=== PATIENT | male | born 1990 | race African-American/Black ===

== ENCOUNTER 2019-05-14 04:40 | Inpatient (IN) | payer BC, OTHER, SELFPAY ==
[2019-05-14] MEDS ORDERED: Acetaminophen 500 MG TAB ONE (04:54)
[2019-05-14] MEDS ORDERED: cefTRIAXone\\ROCEPHIN 2 GM VIAL ONE (04:54)
[2019-05-14] MEDS ORDERED: methylPREDNISolone Sod Succ/PF 125 MG/2 ML VIAL ONE (04:58)
[2019-05-14 05:16] LABS: Hemoglobin 14.1 g/dL (14.0-18.0); Mean Corpuscular HGB CONC 31.9 g/dL (32.0-36.0); Mean Corpuscular Volume 84.6 fL (78.0-98.0); Platelet Count 183 thou/uL (130-400); RBC Distribution Width 12.6 % (11.5-14.5); Red Blood Cell (RBC) Count 5.21 mill/uL (4.70-6.10); White Blood Cell (WBC) Count 8.4 thou/uL (4.8-10.8)
[2019-05-14] MEDS ORDERED: Azithromycin 500 MG VIAL ONE (05:27)
[2019-05-14 05:37] LABS: ALT (SGPT) 25 U/L (8-55); AST (SGOT) 45 U/L (5-34); Albumin 3.4 g/dL (3.5-5.0); Alkaline Phosphatase 85 U/L (40-110); Anion Gap 17 mmol/L (10-20); BUN (Urea Nitrogen) 21 mg/dL (8.9-20.6); Bilirubin, Total 0.3 mg/dL (0.2-1.2); Calc. Creatinine Clearance 0 mL/min (70-130); Calcium 9.1 mg/dL (7.8-10.44); Carbon Dioxide 23 mmol/L (22-29); Chloride 93 mmol/L (98-107); Estimated GFR-MDRD Greater than 90; Globulin 6.5 g/dL (2.4-3.5); Glucose 108 mg/dL (70-105); Potassium 4.3 mmol/L (3.5-5.1); Protein, Total 9.9 g/dL (6.0-8.3); Sodium 129 mmol/L (136-145)
[2019-05-14 05:41] LABS: Band 20 % (5-11); Lymphocytes 23 % (21-51); MDiff Complete? YES; Metamyelocyte 4 % (0-0); Monocytes 7 % (0-10); Neutrophil 46 % (42-75); Platelet Morphology Comment Appears Adequate; RBC Morphology Normal
[2019-05-14 06:07] LABS: Bacteria/HPF None Seen HPF (None Seen); Bilirubin Negative (Negative); Blood, Urine 1+ (Negative); Clarity Clear (Clear); Glucose, Urine (Dipstick) Normal (Negative); Leukocyte Negative Leu/uL (Negative); Nitrite Negative (Negative); Protein, Urine (Dipstick) 200 mg/dL (Neg-Trace); Squamous Epithelial 0-3 HPF (0-3); WBC/HPF 0-3 HPF (0-3)
[2019-05-14 06:11] LABS: Amphetamine Not Detected (NotDetected); Barbiturates Screen Not Detected (NotDetected); Benzodiazepine Screen Not Detected (NotDetected); Cocaine Metabolite Screen Not Detected (NotDetected); Medtox Control Line Valid? VALID (VALID); Medtox Reader # READER 4; Methadone Not Detected (NotDetected); Methamphetamine Not Detected (NotDetected); Opiate Screen Not Detected (NotDetected); Oxycodone Screen Not Detected (NotDetected); Phencyclidine (PCP) Not Detected (NotDetected); THC/Cannabinoid Screen Detected (NotDetected); Tricyclic Screen Not Detected (NotDetected)
--- NOTE | 2019-05-14 06:38 | PDOC.FPRHP ---
- History of Present Illness Chief Complaint: productive cough, fever History of Present Illness: Bijan Lee is a 28 year old M with no PMH who presented to ED with c/o productive cough for the last week. Associated fever, diarrhea, muscle aches, decreased appetite. Has been taking theraflu and ibuprofen which only minimal improvement of symptoms. Associated weight loss over the last week. Denies any chest pain, rashes, n/v, urinary symptoms, penile discharge, exposure or hx of STIs. ED Course: In the ED, received azithromycin, solu-medrol, rocephin, tylenol and solu-medrol - Allergies/Adverse Reactions Allergies Allergy/AdvReac Type Severity Reaction Status Date / Time amoxicillin Allergy Rash Verified 05/14/19 07:48 - History PMHx: none PSHx: none FHx: noncontributory Social: denies drug use (UDS positive for THC), smoking cigarettes, denied alcohol use - Review of Systems General: reports: fever/chills, weight/appetite/sleep changes, night sweats Eyes: denies: eye pain, vision changes ENT: denies: nasal congestion, rhinorrhea Respiratory: reports: cough, congestion, shortness of breath Cardiovascular: denies: chest pain, palpitation, edema Gastrointestinal: reports: diarrhea. denies: nausea, vomiting, constipation, abdominal pain, GI bleeding Genitourinary: denies: dysuria, polyuria Skin: denies: rashes, lesions Musculoskeletal: denies: tenderness, stiffness, swelling, arthritis/arthralgias Neurological: denies: numbness, syncope Psychological: denies: anxiety, depression - Vital signs BP: 115/64 HR: 123 RR: 28 Tmax: 101 Pox: 95% on facemask Wt: 63.5 kg - Physical Exam Constitutional: NAD, awake, alert and oriented HEENT: PERRLA, EOMI Neck: FROM, trachea midline, no JVD Heart: RRR, normal S1/S2, pulses present Lungs: CTAB, no wheezing -Lungs: Decreased air movement Abdomen: soft, non-tender, bowel sounds present Neurological: no focal deficit, CN II-XII intact Skin: no rash/lesions Heme/Lymphatic: no purpura, no petechia Psychiatric: normal mood and affect, good judgment and insight FMR H&P: Results - Labs Result Diagrams: 05/14/19 04:57 05/14/19 04:57 Lab results: WBC 8.4 thou/uL (4.8-10.8) 05/14/19 04:57 Hgb 14.1 g/dL (14.0-18.0) 05/14/19 04:57 Hct 44.1 % (42.0-52.0) 05/14/19 04:57 MCV 84.6 fL (78.0-98.0) 05/14/19 04:57 Plt Count 183 thou/uL (130-400) 05/14/19 04:57 Band Neuts % (Manual) 20 % (5-11) H 05/14/19 04:57 Sodium 129 mmol/L (136-145) L 05/14/19 04:57 Potassium 4.3 mmol/L (3.5-5.1) 05/14/19 04:57 Chloride 93 mmol/L (98-107) L 05/14/19 04:57 Carbon Dioxide 23 mmol/L (22-29) 05/14/19 04:57 BUN 21 mg/dL (8.9-20.6) H 05/14/19 04:57 Creatinine 1.10 mg/dL (0.7-1.3) 05/14/19 04:57 Glucose 108 mg/dL (70-105) H 05/14/19 04:57 Lactic Acid 2.4 mmol/L (0.5-2.2) H 05/14/19 04:57 Calcium 9.1 mg/dL (7.8-10.44) 05/14/19 04:57 Total Bilirubin 0.3 mg/dL (0.2-1.2) 05/14/19 04:57 AST 45 U/L (5-34) H 05/14/19 04:57 ALT 25 U/L (8-55) 05/14/19 04:57 Alkaline Phosphatase 85 U/L (40-110) 05/14/19 04:57 B-Natriuretic Peptide Less than 10.0 pg/mL (0-100) 05/14/19 04:57 Serum Total Protein 9.9 g/dL (6.0-8.3) H 05/14/19 04:57 Albumin 3.4 g/dL (3.5-5.0) L 05/14/19 04:57 Urine Ketones Trace mg/dL (Negative) A 05/14/19 05:38 Urine Blood 1+ (Negative) A 05/14/19 05:38 Urine Nitrite Negative (Negative) 05/14/19 05:38 Ur Leukocyte Esterase Negative Romana/uL (Negative) 05/14/19 05:38 Urine RBC 7-10 HPF (0-3) A 05/14/19 05:38 Urine WBC 0-3 HPF (0-3) 05/14/19 05:38 Ur Squamous Epith Cells 0-3 HPF (0-3) 05/14/19 05:38 Urine Bacteria None Seen HPF (None Seen) 05/14/19 05:38 FMR H&P: A/P - Problem List (1) Acute respiratory failure with hypoxia Current Visit: Yes Status: Acute Code(s): J96.01 - ACUTE RESPIRATORY FAILURE WITH HYPOXIA (2) Pneumonia Current Visit: Yes Status: Acute Code(s): J18.9 - PNEUMONIA, UNSPECIFIED ORGANISM (3) Bandemia Current Visit: Yes Status: Acute Code(s): D72.825 - BANDEMIA (4) Sepsis Current Visit: Yes Status: Acute Code(s): A41.9 - SEPSIS, UNSPECIFIED ORGANISM (5) Marijuana use Current Visit: Yes Status: Acute Code(s): F12.90 - CANNABIS USE, UNSPECIFIED , UNCOMPLICATED - Plan Pt is a 28 yo male who presents with cough, myalgia, decrease PO intake x 1 week. # Sepsis 2/2 Pneumonia # Acute Hypoxic Resp Failure 2/2 Pnuemonia # Bandemia CXR, Chest CT suggestive of pneumonia - patchy infiltrates. Tachycardia, febrile, WNL WBC but bandemia 20, influenza negative. Started on azithromycin, rocephin, solumedrol in ED. Pt otherwise a healthy individual without any remarkable PMH. - defer abx to day time with lab results. - HIV pending - frail appearing, does not appear to have exposure at this time. Less likely acute HIV exposure. - Legionella, TB, Strep, Mycoplasma, Histo pending. - Lactic, CRP, Procalcitonin pending - BCx pending - Duonebs - hx of smoking # Marijuana abuse Fluids: LR 125 mls/hr Diet: reg VTE: lovenox Code: full Dispo: > 48 hour stay FMR H&P: Upper Level - Plan Date/Time: 05/14/19 3710 I, Carlton Wing MD, have evaluated this patient and agree with findings/plan as outlined by international logistics manager resident. Pertinent changes/additions are listed here. Bijan Lee is a 28 year old M with no PMH who presented to the ED with a 1 wk history of productive cough, fever, decreased appetite. States that sx have progressively worsened and he became more short of breath prompting him to go to ED. Has also had diarrhea, no GI bleeding. Denies any chest pain, rashes, n/v, , hemoptysis, urinary symptoms, hx of STI's, Hx of IV drug use. In the ED, he was febrile, tachycardic and tachypneic. Also required oxygen supplementation and was satting mid 90s on facemask upon admission. In the ED, CT chest showed diffuse patchy infiltrates, as did his CXR. WBC was 8.4 with bandemia, D Dimer was 2.94, Trop 0.022, BNP 10, Lactic acid 2.4, influenza neg, UDS positive for THC. UA showed 1+ blood in urine and 7-10 RBC. On exam, he has cachectic appearance, tachycardic, no murmurs, decreased air movement on lung exam and mild b/l rales diffusely. In ED, patient was started on azithromycin and ceftriaxone, duoneb and solumedrol. Pt endorses symptoms improvement with interventions in ED. Admitting to inpatient medical for sepsis and acute hypoxic respiratory failure 2/2 CAP. In the setting of diffuse patchy infiltrates, cachectic appearance, and normal WBC count with sepsis, HIV needs to be ruled out. Ordered HIV, strep pneumo Ag, Mycoplasma, Quantiferon, legionella, procal, CRP. Continue empiric antibiotics along with fluids. Further management based on lab results. Pt is hemodynamically stable. Anticipate hospital stay >48 hours. Please see international logistics manager note above for full H&P, which I have reviewed and agree with.
[2019-05-14] MEDS ORDERED: Ondansetron ODT 4 MG TAB PO PRN (07:42)
[2019-05-14 08:01] VITALS: BMI 21.9
--- NOTE | 2019-05-14 08:15 | CT ---
PRELIMINARY REPORT/[facility]/EMERGENCY AFTER HOURS PROCEDURE: EXAM: CTA Chest, With Contrast. DATE/ TIME: 05/14/2019, 5:57 AM INDICATION: Dyspnea; shortness of breath; productive cough. Elevated d-dimer TECHNIQUE: During the rapid intravenous administration of 95 mL Isovue-370, helical CT of the chest was performed utilizing angiographic protocol. MPRs and multiplanar MIPs were generated and reviewed . Exam was performed using one or more of the following dose reduction techniques: automated exposu re control, adjustment of the mA and/or kV according to patient size, or use of iterative reconstruct ion technique. COMPARISON: None. FINDINGS: The heart is not enlarged. Pulmonary arterial system is fairly well-opacified and there i s no identifiable intraluminal filling defect. Aorta is without aneurysm or dissection. Right hilar , subcarinal and azygoesophageal lymph nodes are enlarged. Mmkr-ax-lojknach bronchial wall thickenin g is seen with marked reticulonodular interstitial infiltrate bilaterally with relative sparing of th e apices, left more than right. There is no pleural effusion. A mild levoconvex upper thoracic scoli osis is noted. No acute osseous abnormality is seen. Imaging of the upper abdomen shows no acute pa thology. Patient has negligible body fat. IMPRESSION: 1. No pulmonary thromboembolism, as visualized. 2. Five-lobe reticulonodular interstitial infiltrates with bronchial wall thickening. Leading consi deration is an atypical infection. 3. Right hilar and mediastinal lymphadenopathy is presumably reactive in nature. Although considere d unlikely, a neoplastic process cannot be excluded. ELECTRONICALLY SIGNED BY: Xavier Mcneil DO May 14, 2019 6:57:17 AM [employer]PER[employer] OPEN PIT FINAL REPORT CT PULMONARY ANGIOGRAM WITH IV CONTRAST AND 3D POST PROCESSING: I agree with the preliminary report given by Dr. Xavier Mcneil of [facility]. POS: [facility]
[2019-05-14] MEDS: Lactated Ringer's 1,000 ML IV SCH ×2 (08:22→16:44)
[2019-05-14] MEDS: Enoxaparin Sodium 40 MG/0.4 ML SYRINGE SC SCH (08:23)
--- NOTE | 2019-05-14 09:09 | RAD ---
PORTABLE CHEST ONE VIEW: 05/14/2019 4:39 a.m. HISTORY: Cough. Dyspnea. FINDINGS: The heart size is normal. The lungs are expanded with bilateral reticulonodular infiltrates, most pro minent in the mid and lower lung zones. No pneumothoraces or pleural effusions are seen. The findings are suspicious for atypical pneumonia. POS: [facility]
[2019-05-14 09:44] LABS: Lactic Acid 2.9 mmol/L (0.5-2.2)
[2019-05-14] MEDS ORDERED: Iopamidol-370 76% 500 ML 1 ML ONE (10:38)
[2019-05-14 11:22] LABS: HIV (1/2) Antibody/Antigen Reflxed Confirmation (NonReactive)
--- NOTE | 2019-05-14 12:02 | HP ---
I have discussed the case with Dr. Leonardo Sears and agree with his assessment and plan. HISTORY OF PRESENT ILLNESS: Mr. Lee is a pleasant 28-year-old black man, who presented with several days of productive cough, low-grade fever, decreased appetite, muscle aches. Chest x-ray and CT done in the emergency room were quite interesting in that there were findings of reticulonodular interstitial infiltrates with bronchial wall thickening suggesting an atypical infection such as Pneumocystis or Mycoplasma. There is also right hilar and mediastinal lymphadenopathy, which is presumably reactive in nature, but needs to be followed to exclude a neoplastic process. In the event, the patient was admitted with an atypical pneumonia. We will also evaluate him for HIV given his generally frail cachectic appearance and sexual habits. PHYSICAL EXAMINATION: GENERAL: He is pleasant, awake, and alert. VITAL SIGNS: Current temperature is 99 degrees; pulse rate 100; respirations are 20, not labored; blood pressure is 126/72; O2 saturation is about 95% on 3 L. EAR, NOSE, AND THROAT: No erythema or exudate. NECK: Supple. CARDIAC: Heart rhythm regular. No gallop or murmur noted. LUNGS: Clear to auscultation without wheezing. Air movement is diminished. ABDOMEN: Flat and soft without guarding, rebound, or rigidity. EXTREMITIES: No edema. NEUROLOGIC: No focal deficits. LABORATORY DATA: CBC; white count is 8400, hemoglobin is 14.1, hematocrit is 44.1 with an MCV of 84.6, his bands however are 20%. Lactic acid is elevated at 2.9. His C-reactive protein is elevated at 26.45. LDH is elevated at 331. Toxicology is positive for marijuana. Urinalysis shows 7 to 10 rbc's per high-power field. The aforementioned abnormal chest CT as previously mentioned. His chest x-ray shows a normal heart size. There are bilateral reticulonodular infiltrates most prominent in the mid and lower lung zones. The findings are suspicious for atypical pneumonia. ASSESSMENT: Atypical pneumonia, need to consider also the possibility of human immunodeficiency virus disease and this will be checked. We will continue on current antibiotic coverage pending results of some preliminary tests. Job ID: [id number]
[2019-05-14 12:47] LABS: Syphilis Antibody Nonreactive (Nonreactive)
[2019-05-14 12:49] LABS: HBSAg Index 0.22 S/CO (0-0.99); Hep B Core Total Ab Non-Reactive (NonReactive); Hep B Surf Ag Non-Reactive S/CO (NonReactive)
[2019-05-14 13:28] LABS: Hep B Surf AB Reactive (NonReactive)
[2019-05-14 13:29] LABS: HBSAB Concentration 1592.54 mIU/mL
[2019-05-14 14:40] LABS: Legionella Urinary Ag Negative (Negative); Strep pneumo Urine Ag NEGATIVE (NEGATIVE)
--- NOTE | 2019-05-14 15:50 | CON ---
DATE OF CONSULTATION: 05/14/2019 REASON FOR CONSULTATION: Newly identified HIV infection with likely Pneumocystis. HISTORY OF PRESENT ILLNESS: A 28-year-old who has history of male with male sexual activity in the past and otherwise fairly unremarkable past medical history and developed respiratory symptoms for the past week. Reportedly, he had some weight loss associated with it, some fever and diarrhea, myalgias. He eventually had to come to the emergency room and blood pressure was 115/64, heart rate 123, temperature 101, and O2 saturation 95%. His lungs were described as clear and white cell count is 8.4, creatinine 1.1. Chest x-ray showed bilateral pulmonary infiltrates and CT was consistent with an atypical infection. The serology showed HIV positive antigen and antibody. Syphilis nonreactive. Currently, he is a little bit tachypneic, coughing intermittently. No headaches. No visual symptoms, sore throat, odynophagia, or dysphagia. No chest pain. No back pain. No abdominal pain or diarrhea. No genitourinary symptoms. No joint symptoms. No skin disorder. MEDICAL HISTORY: Pretty negative. Denies any past STDs. ALLERGY HISTORY: Amoxicillin. SOCIAL HISTORY: Works for the [employer] department at [email or web address], recently hired about a year ago. No smoking history. FAMILY HISTORY: Noncontributory. PHYSICAL EXAMINATION: VITAL SIGNS: T-max 99, blood pressure 120/70, pulse 100, respiratory rate 22, and O2 saturation 94% on 3 L nasal cannula. SKIN: Normal. No lymphadenopathy. HEENT: A little bit of temporal wasting. Ocular movements normal. Oral cavity without any abnormalities noted. Numerous teeth in place in good shape. NECK: Supple. No jugular vein distention or carotid bruits. LUNGS: With scattered inspiratory crackles, both right and left hemithorax. HEART: S1 and S2. Regular rate. No S3 or S4. ABDOMEN: Soft. Not distended or tender. No ascites. No bladder distention. MUSCULOSKELETAL: No joint inflammatory activity. Moves extremities equally. NEUROLOGIC: He is awake, oriented, follows commands. Speech is normal. Recollection is normal. ASSESSMENT: Human immunodeficiency virus seropositive status, newly identified, relative lymphocytopenia with total lymphocyte count less than 2000, diffuse pulmonary infiltrates. DISCUSSION: The most likely scenario is Pneumocystis pneumonia. We will submit sputum for Pneumocystis PCR and check Fungitell assay. Start IV Bactrim 4 mg/ kg q.6 hours and Decadron or Prednisone and very soon, we will start anti-retroviral therapy. Check cryptococcus antigen, histoplasma antigen, CMV DNA PCR and toxoplasma antibody. Job ID: [id number] [facility]
[2019-05-14] MEDS: predniSONE 20 MG TAB PO SCH (20:10)
[2019-05-14] MEDS ORDERED: Sulfameth/Trimethoprim DS 800-160mg TAB PO SCH (21:00)
[2019-05-15] MEDS: Lactated Ringer's 1,000 ML IV SCH ×3 (01:27→18:29)
[2019-05-15 06:00] LABS: Anion Gap 12 mmol/L (10-20); BUN (Urea Nitrogen) 15 mg/dL (8.9-20.6); Calc. Creatinine Clearance 128 mL/min (70-130); Calcium 8.5 mg/dL (7.8-10.44); Carbon Dioxide 23 mmol/L (22-29); Chloride 101 mmol/L (98-107); Estimated GFR-MDRD Greater than 90; Glucose 112 mg/dL (70-105); Potassium 4.4 mmol/L (3.5-5.1); Sodium 132 mmol/L (136-145)
--- NOTE | 2019-05-15 06:01 | PDOC.FM ---
- Subjective Subjective: Pt states he is much improved from yesterday. Pt admits to homosexual intercourse in past years. pt has tattoos he received on the "streets". States SOB improved. denies CP. - Objective MAR Reviewed: Yes Vital Signs & Weight: Vital Signs (12 hours) Temp Pulse Resp BP BP Pulse Ox 05/15/19 04:00 98.4 F 99 19 120/74 97 05/15/19 00:00 98.6 F 90 20 116/71 97 05/14/19 20:28 98.9 F 87 19 123/77 95 05/14/19 20:00 95 Weight Weight 63.5 kg I&O: 05/13/19 05/14/19 05/15/19 06:59 06:59 06:59 Intake Total 2940 Balance 2940 Result Diagrams: 05/15/19 04:56 05/15/19 04:56 Phys Exam - Physical Examination Constitutional: NAD HEENT: PERRLA, moist MMs, sclera anicteric Neck: no nodes, no JVD, supple, full ROM diminished breathsounds. Cardiovascular: RRR, no significant murmur Gastrointestinal: soft, non-tender, no distention, positive bowel sounds Musculoskeletal: no edema, pulses present Neurological: non-focal, normal sensation, moves all 4 limbs Psychiatric: normal affect, A&O x 3 Skin: no rash, normal turgor, cap refill <2 seconds Dx/Plan (1) HIV (human immunodeficiency virus infection) Code(s): B20 - HUMAN IMMUNODEFICIENCY VIRUS [HIV] DISEASE Status: Acute (2) PCP (pneumocystis jiroveci pneumonia) Code(s): B59 - PNEUMOCYSTOSIS Status: Acute (3) Lymphocytopenia Code(s): D72.810 - LYMPHOCYTOPENIA Status: Acute (4) Acute respiratory failure with hypoxia Code(s): J96.01 - ACUTE RESPIRATORY FAILURE WITH HYPOXIA Status: Acute (5) Bandemia Code(s): D72.825 - BANDEMIA Status: Acute (6) Marijuana use Code(s): F12.90 - CANNABIS USE, UNSPECIFIED, UNCOMPLICATED Status: Acute (7) Sepsis Code(s): A41.9 - SEPSIS, UNSPECIFIED ORGANISM Status: Acute - Plan Plan: 28 y/o male admitted for further treatment and evaluation of pneumonia. Pt new diagnosed with HIV. 1. Pneumoina, most likely PCP - Diagnosed with HIV on admission 05/14/19. - CXR diffuse ground glass appearance - Chest CT: diffuse patchy infiltrates - WBC 8.4 with 20 bandemia. Absolute lymphocyte count 1932. - Procal 1.86 - urine strep penumo ag neg, urine Legionella ag negative. Influenza a/b neg. - penumocystis PCR pending - started on bactrim and decadron 05/14/19. 2. HIV seropositive, new diagnosis for pt. - CD4 count pending - pt presenting with aids defining illness. - Dr. Tapia consulted. appreciated consult and recommendations. Will be starting anti-retroviral therapy soon. Added bactrim IV. Pending results of pneumocystis PCR, fungitell assay, histoplasma AG, CMV DNA PCR, and toxoplasma AG. - cryptococcal AG neg. - LDH 331, CRP 26.45 - Hep B NR, immune. - Pt has social hx of homosexual intercourse, street tattoos as possible source of HIV. - Denies any sexual activity in over a year. Pt unsure of how he contracted HIV. 3. Acute hypoxic respiratory failure 2/2 #1. - improved to 95-97% on 2.5 L per NC. - continue O2 per NC to keep stats above 92% 4. Relative lymphocytopenia - wbc 8.4 - absolute lymphocyte count 1932 - CD4 count pending. 5. Possible AIDS - Pneumocystis Pneumonia aids defining illness. - CD4 count pending 6. Sepsis 2/2 #1. Improved - bactrim Code status: full code diet: regular dvt ppx: lovenox Dispo: stable, admit for further eval and treatment of pneumonia in setting of newly diagnosed HIV. Regina consulted.
[2019-05-15 06:23] LABS: Hemoglobin 11.5 g/dL (14.0-18.0); Mean Corpuscular HGB CONC 31.8 g/dL (32.0-36.0); Mean Corpuscular Hemoglobin 27.1 pg (27.0-31.0); Mean Corpuscular Volume 85.2 fL (78.0-98.0); Mean Platelet Volume 9.8 fL (7.4-10.4); Platelet Count 187 thou/uL (130-400); RBC Distribution Width 12.6 % (11.5-14.5); Red Blood Cell (RBC) Count 4.25 mill/uL (4.70-6.10); White Blood Cell (WBC) Count 8.3 thou/uL (4.8-10.8)
[2019-05-15 06:32] LABS: Band 21 % (5-11); Lymphocytes 5 % (21-51); MDiff Complete? YES; Monocytes 5 % (0-10); Neutrophil 69 % (42-75)
[2019-05-15] MEDS: Enoxaparin Sodium 40 MG/0.4 ML SYRINGE SC SCH (08:28)
[2019-05-15] MEDS: Azithromycin 250 MG TAB PO SCH (08:28)
[2019-05-15] MEDS: predniSONE 20 MG TAB PO SCH ×2 (08:28→20:32)
--- NOTE | 2019-05-15 11:37 | PRG ---
DATE OF SERVICE: 05/15/2019 Mr. Lee is in much better spirits this morning. He was found to have HIV, and we will consult Dr. Tapia. He also has probable Pneumocystis pneumonia, and we have added Bactrim to his antibiotic regimen. He is also growing gram-positive cocci out of 2 blood cultures, and we will, for now, continue Rocephin until this is further clarified. We have also checked him for hep A and B. his hepatitis A antibody is negative. His hepatitis B was consistent with immunity to hep B from immunization. We will continue to follow with Dr. Tapia, and he will be on IV Bactrim for several days. After that time, we can transition him to p.o. Job ID: [id number]
[2019-05-15] MEDS: cefTRIAXone\\ROCEPHIN 2 GM in Sodium Chloride 0.9% 100 ML IVPB SCH (12:42)
--- NOTE | 2019-05-15 14:58 | PRG ---
DATE OF SERVICE: 05/15/2019 SUBJECTIVE: Mr. Lee is feeling a little better, still with coughing, spells intermittently, mild dyspnea. No chest pain. No abdominal pain or diarrhea. Eating well. OBJECTIVE: VITAL SIGNS: He is afebrile. BP 138/86, pulse 102, O2 saturation 93% to 96%. LUNGS: Still bilateral inspiratory crackles, quite coarse. HEART: S1 and S2. Regular rate. ABDOMEN: Soft, not distended. MEDICATIONS: He is on; 1. Bactrim. 2. Azithromycin. 3. Rocephin. 4. Prednisone. LABORATORY DATA: Two sets of blood cultures positive for gram-positive cocci. Verigene negative for Strep pneumoniae and other common pathogens, so It could represent contamination of the sample, although those are in chains, so it may be a legitimate culture result. We will see what it turns out. The cryptococcus antigen was negative. ASSESSMENT AND PLAN: Newly-identified HIV seropositive status with diffuse pneumonitis, which is consistent with Pneumocystis, but now he has positive blood cultures with what appears to be Streptococcus yet to be fully identified, susceptibility tested. We will continue Rocephin and azithromycin. We will continue on Bactrim as well and prednisone. Await on the identification and susceptibility of the organism in the blood cultures to determine the treatment regimen appropriate if needed. Even in the face of this positive culture, I think that the underlying diagnosis still is until proven otherwise Pneumocystis pneumonia. If there is worsening of the lung function, then we would need to consider bronchoscopy for pathology. Job ID: [id number] [facility]
[2019-05-15 15:09] LABS: HIV 1 Antibody Multi-Spot Positive (Negative); HIV 2 Antibody Multi-Spot Negative (Negative); HIV Multi-spot Interp HIV-1 Positive (.)
[2019-05-15 17:09] LABS: %CD4 (Helper/Inducer) 10.1 % (30.8-58.5); Absolute CD4 71 /uL (359-1519); Lymphocytes/Gated Cell Count 0.7 x10E3/uL (0.7-3.1); Total Lymphocyte 11 % (Not Estab.); WBC Total Count 6.7 x10E3/uL (3.4-10.8)
[2019-05-16] MEDS: Lactated Ringer's 1,000 ML IV SCH ×4 (00:16→23:32)
[2019-05-16 06:32] LABS: Anion Gap 9 mmol/L (10-20); BUN (Urea Nitrogen) 13 mg/dL (8.9-20.6); Calc. Creatinine Clearance 126 mL/min (70-130); Calcium 8.3 mg/dL (7.8-10.44); Carbon Dioxide 25 mmol/L (22-29); Chloride 100 mmol/L (98-107); Estimated GFR-MDRD Greater than 90; Glucose 107 mg/dL (70-105); Potassium 4.2 mmol/L (3.5-5.1); Sodium 130 mmol/L (136-145)
[2019-05-16 06:54] LABS: Band 10 % (5-11); Hemoglobin 11.5 g/dL (14.0-18.0); Lymphocytes 6 % (21-51); MDiff Complete? YES; Mean Corpuscular HGB CONC 32.7 g/dL (32.0-36.0); Mean Corpuscular Hemoglobin 27.6 pg (27.0-31.0); Mean Corpuscular Volume 84.3 fL (78.0-98.0); Mean Platelet Volume 8.6 fL (7.4-10.4); Monocytes 1 % (0-10); Neutrophil 82 % (42-75); Platelet Count 240 thou/uL (130-400); RBC Distribution Width 12.6 % (11.5-14.5); Reactive Lymphocytes 1 % (0-10); Red Blood Cell (RBC) Count 4.17 mill/uL (4.70-6.10); White Blood Cell (WBC) Count 11.8 thou/uL (4.8-10.8)
[2019-05-16] MEDS: Enoxaparin Sodium 40 MG/0.4 ML SYRINGE SC SCH (08:30)
[2019-05-16] MEDS: predniSONE 20 MG TAB PO SCH ×2 (08:31→19:57)
[2019-05-16] MEDS: Azithromycin 250 MG TAB PO SCH (08:31)
[2019-05-16] MEDS: cefTRIAXone\\ROCEPHIN 2 GM in Sodium Chloride 0.9% 100 ML IVPB SCH (11:23)
--- NOTE | 2019-05-16 11:56 | PRG ---
DATE OF SERVICE: 05/16/2019 I have examined the patient and discussed the case with the resident. I agree with the resident's assessment and plan. Job ID: [id number]
[2019-05-16 12:08] LABS: LOG10 HIV-1 RNA 3.646 (.)
--- NOTE | 2019-05-16 12:12 | PDOC.FM ---
- Subjective Subjective: Pt feeling well, he feels that his breathing has improved, no fever/chills, no other complaints - Objective Vital Signs & Weight: Vital Signs (12 hours) Temp Pulse Resp BP BP Pulse Ox 05/16/19 10:20 98.3 F 91 20 120/72 97 05/16/19 08:17 98.3 F 91 20 116/69 97 05/16/19 04:30 98.5 F 88 20 123/72 95 Weight Weight 63.5 kg I&O: 05/15/19 05/16/19 05/17/19 06:59 06:59 06:59 Intake Total 5190 5560 Output Total 500 2600 Balance 4690 2960 Result Diagrams: 05/16/19 05:48 05/16/19 05:48 Phys Exam - Physical Examination Constitutional: NAD HEENT: moist MMs, sclera anicteric Neck: no nodes Respiratory: no wheezing, no rales, no rhonchi Cardiovascular: RRR, no significant murmur Gastrointestinal: non-tender, no distention Musculoskeletal: pulses present Neurological: normal sensation, moves all 4 limbs Psychiatric: normal affect, A&O x 3 Skin: no rash, normal turgor Dx/Plan (1) Acute respiratory failure with hypoxia Code(s): J96.01 - ACUTE RESPIRATORY FAILURE WITH HYPOXIA Status: Acute (2) HIV (human immunodeficiency virus infection) Code(s): B20 - HUMAN IMMUNODEFICIENCY VIRUS [HIV] DISEASE Status: Acute (3) Lymphocytopenia Code(s): D72.810 - LYMPHOCYTOPENIA Status: Acute (4) PCP (pneumocystis jiroveci pneumonia) Code(s): B59 - PNEUMOCYSTOSIS Status: Acute (5) Pneumonia Code(s): J18.9 - PNEUMONIA, UNSPECIFIED ORGANISM Status: Acute (6) Sepsis Code(s): A41.9 - SEPSIS, UNSPECIFIED ORGANISM Status: Acute - Plan Plan: Pneumoina, most likely PCP A- Diagnosed with HIV on admission 05/14/19. CXR diffuse ground glass appearance. Chest CT: diffuse patchy infiltrates. urine strep penumo ag neg, urine Legionella ag negative. Influenza a/b neg. penumocystis PCR pending. Sputum smear shows fungal spores. P- started on bactrim and decadron 05/14/19. -continue azithro and rocephin HIV seropositive, new diagnosis for pt. A- CD4 count 71. Dr. Tapia consulted. appreciated consult and recommendations. Will be starting anti-retroviral therapy soon. Added bactrim IV. Pending results of pneumocystis PCR, fungitell assay, histoplasma AG, CMV DNA PCR, and toxoplasma AG. cryptococcal AG neg. LDH 331, CRP 26.45. Hep B NR, immune. Pt has social hx of homosexual intercourse, street tattoos as possible source of HIV. P- antriretrovirals per Dr. Tapia Acute hypoxic respiratory failure 2/2 #1. A- improved to 95-97% on 2.5 L per NC. P- continue O2 per NC to keep stats above 92% Relative lymphocytopenia A- wbc 8.4. absolute lymphocyte count 1932. CD4 count 71 P- treat HIV Sepsis 2/2 #1. Improved -bactrim, smith santana Code status: full code diet: regular dvt ppx: lovenox
[2019-05-16 16:08] LABS: CMV DNA-PCR Test Positive < 200 IU/mL (Negative)
[2019-05-17 05:49] LABS: Anion Gap 11 mmol/L (10-20); BUN (Urea Nitrogen) 11 mg/dL (8.9-20.6); Calc. Creatinine Clearance 131 mL/min (70-130); Calcium 8.5 mg/dL (7.8-10.44); Carbon Dioxide 23 mmol/L (22-29); Chloride 99 mmol/L (98-107); Estimated GFR-MDRD Greater than 90; Glucose 110 mg/dL (70-105); Potassium 4.2 mmol/L (3.5-5.1); Sodium 129 mmol/L (136-145)
[2019-05-17 06:03] LABS: Hemoglobin 12.3 g/dL (14.0-18.0); Mean Corpuscular HGB CONC 32.5 g/dL (32.0-36.0); Mean Corpuscular Hemoglobin 27.3 pg (27.0-31.0); Mean Corpuscular Volume 84.1 fL (78.0-98.0); Mean Platelet Volume 8.3 fL (7.4-10.4); Platelet Count 273 thou/uL (130-400); RBC Distribution Width 12.5 % (11.5-14.5); Red Blood Cell (RBC) Count 4.48 mill/uL (4.70-6.10); White Blood Cell (WBC) Count 11.3 thou/uL (4.8-10.8)
[2019-05-17 06:46] LABS: Band 4 % (5-11); Lymphocytes 7 % (21-51); MDiff Complete? YES; Monocytes 2 % (0-10); Myelocyte 1 % (0-0); Neutrophil 86 % (42-75)
[2019-05-17] MEDS: Lactated Ringer's 1,000 ML IV SCH (07:29)
--- NOTE | 2019-05-17 07:31 | PDOC.FM ---
- Subjective Subjective: Feeling well, no complaints, denies SOB/CP, no fever/chills - Objective Vital Signs & Weight: Vital Signs (12 hours) Temp Pulse Resp BP BP Pulse Ox 05/17/19 03:05 98.3 F 71 18 132/66 97 05/16/19 23:34 98.5 F 75 16 120/71 97 05/16/19 19:58 98.3 F 89 18 128/53 L 96 Weight Weight 63.5 kg I&O: 05/16/19 05/17/19 05/18/19 06:59 06:59 06:59 Intake Total 5560 3520 Output Total 2600 3350 Balance 2960 170 Result Diagrams: 05/17/19 05:09 05/17/19 05:09 Phys Exam - Physical Examination Constitutional: NAD HEENT: moist MMs, sclera anicteric Neck: no nodes, no JVD Respiratory: no wheezing, clear to auscultation bilateral Cardiovascular: RRR, no significant murmur Gastrointestinal: non-tender, no distention Musculoskeletal: no edema, pulses present Neurological: non-focal, normal sensation Psychiatric: normal affect, A&O x 3 Skin: no rash, normal turgor Dx/Plan (1) Acute respiratory failure with hypoxia Code(s): J96.01 - ACUTE RESPIRATORY FAILURE WITH HYPOXIA Status: Acute (2) HIV (human immunodeficiency virus infection) Code(s): B20 - HUMAN IMMUNODEFICIENCY VIRUS [HIV] DISEASE Status: Acute (3) Lymphocytopenia Code(s): D72.810 - LYMPHOCYTOPENIA Status: Acute (4) PCP (pneumocystis jiroveci pneumonia) Code(s): B59 - PNEUMOCYSTOSIS Status: Acute (5) Pneumonia Code(s): J18.9 - PNEUMONIA, UNSPECIFIED ORGANISM Status: Acute (6) Sepsis Code(s): A41.9 - SEPSIS, UNSPECIFIED ORGANISM Status: Acute - Plan Plan: Pneumoina, most likely PCP A- Diagnosed with HIV on admission 05/14/19. CXR diffuse ground glass appearance. Chest CT: diffuse patchy infiltrates. urine strep penumo ag neg, urine Legionella ag negative. Influenza a/b neg. penumocystis PCR pending. Sputum smear shows fungal spores. CD4 71 P- started on bactrim and decadron 05/14/19. -continue azithro, bactrim, and rocephin H. Influenza bacteremia A- shown on BCx 06/14. Pt is covered on three antimicrobials P- Continue azithro, rocephin, and bactrim -f/u recs per ID HIV seropositive, new diagnosis for pt. A- CD4 count 71. Dr. Tapia consulted. appreciated consult and recommendations. Will be starting anti-retroviral therapy soon. Added bactrim IV. Pending results of pneumocystis PCR, fungitell assay, histoplasma AG, CMV DNA PCR, and toxoplasma AG. cryptococcal AG neg. LDH 331, CRP 26.45. Hep B NR, immune. Pt has social hx of homosexual intercourse, street tattoos as possible source of HIV. P- antriretrovirals to be started per Dr. Tapia Acute hypoxic respiratory failure 06/14 #1. A- improved to 95-97% on 2.5 L per NC. P- continue O2 per NC to keep stats above 92% Relative lymphocytopenia A- wbc 8.4. absolute lymphocyte count 1932. CD4 count 71 P- treat HIV per ID Sepsis 06/14 #1. Improved -bactrim, rocephin, azithro Code status: full code diet: regular dvt ppx: lovenox
[2019-05-17] MEDS: Enoxaparin Sodium 40 MG/0.4 ML SYRINGE SC SCH (08:18)
[2019-05-17] MEDS: Azithromycin 250 MG TAB PO SCH (08:18)
[2019-05-17] MEDS: predniSONE 20 MG TAB PO SCH (08:18)
[2019-05-17] MEDS: Sodium Chloride 0.9% 1,000 ML IV SCH ×3 (08:40→20:37)
--- NOTE | 2019-05-17 11:02 | PRG ---
DATE OF SERVICE: 05/17/2019 I have examined the patient. I have discussed his care with Dr. Ming Mitchell, and agree with his assessment and plan. Job ID: [id number]
[2019-05-17] MEDS: cefTRIAXone\\ROCEPHIN 2 GM in Sodium Chloride 0.9% 100 ML IVPB SCH (11:37)
--- NOTE | 2019-05-17 15:51 | PRG ---
DATE OF SERVICE: 05/17/2019 SUBJECTIVE: Feeling about the same. Not coughing as much. Still needing oxygen supplementation. No diarrhea. No chest pain. No sputum production. OBJECTIVE: VITAL SIGNS: He has been afebrile, blood pressure 127/81, O2 saturation 95 on 3 L nasal cannula. GENERAL: Awake, alert, oriented. LUNGS: Clear breath sounds. HEART: S1 and S2. Regular rate. ABDOMEN: Soft. Not distended. EXTREMITIES: Moves extremities equally. No joint inflammatory activity. LABORATORY DATA: The blood cultures yielded Haemophilus influenzae. The Fungitell assay is less than 31, so was negative. CD4 of 71 and virus count 4430. CMV was less than 200 and urine histoplasma antigen was negative. ASSESSMENT AND DISCUSSION: Newly identified HIV seropositive status with advanced immunosuppression, who presents with diffuse pneumonitis. Initially, we felt that Pneumocystis was a likely diagnosis, however, in the face of a negative Fungitell assay and positive blood cultures for Haemophilus influenzae, we will have to take that as the more likely scenario. We will switch him to oral Bactrim, start tapering prednisone down to 20 mg in the morning, discontinue azithromycin, leave him on Rocephin, start anti-retroviral therapy with Isent[facility] and Truvada. It is possible that he has both problems, waiting on the Pneumocystis PCR. Job ID: [id number] [facility]ALTH[facility]
[2019-05-17] MEDS: Sulfameth/Trimethoprim DS 800-160mg TAB PO SCH (20:36)
[2019-05-17] MEDS: Raltegravir Potassium 400 MG TAB PO SCH (20:36)
[2019-05-18] MEDS: Sodium Chloride 0.9% 1,000 ML IV SCH ×2 (04:17→11:59)
[2019-05-18 05:05] LABS: Anion Gap 10 mmol/L (10-20); BUN (Urea Nitrogen) 12 mg/dL (8.9-20.6); Calc. Creatinine Clearance 133 mL/min (70-130); Calcium 8.1 mg/dL (7.8-10.44); Carbon Dioxide 24 mmol/L (22-29); Chloride 102 mmol/L (98-107); Estimated GFR-MDRD Greater than 90; Glucose 92 mg/dL (70-105); Potassium 3.7 mmol/L (3.5-5.1); Sodium 132 mmol/L (136-145)
[2019-05-18 06:00] LABS: Band 14 % (5-11); Lymphocytes 8 % (21-51); MDiff Complete? YES; Mean Corpuscular HGB CONC 32.4 g/dL (32.0-36.0); Mean Corpuscular Hemoglobin 27.4 pg (27.0-31.0); Mean Corpuscular Volume 84.5 fL (78.0-98.0); Mean Platelet Volume 8.5 fL (7.4-10.4); Neutrophil 78 % (42-75); Platelet Count 312 thou/uL (130-400); RBC Distribution Width 12.6 % (11.5-14.5); Red Blood Cell (RBC) Count 4.38 mill/uL (4.70-6.10)
--- NOTE | 2019-05-18 06:21 | PDOC.FM ---
- Subjective Subjective: No acute overnight events. Denies CP, SOB. Cough improving. - Objective MAR Reviewed: Yes Vital Signs & Weight: Vital Signs (12 hours) Temp Pulse Resp BP Pulse Ox 05/18/19 03:15 98.6 F 84 18 130/80 95 05/17/19 23:55 98.6 F 80 18 129/76 97 05/17/19 20:30 98 05/17/19 19:08 98.5 F 88 18 135/76 97 Weight Weight 63.5 kg I&O: 05/16/19 05/17/19 05/18/19 06:59 06:59 06:59 Intake Total 5560 3520 4520 Output Total 2600 3350 1850 Balance 2960 170 2670 Result Diagrams: 05/18/19 04:09 05/18/19 04:09 Phys Exam - Physical Examination Constitutional: NAD HEENT: moist MMs, sclera anicteric Neck: no nodes, no JVD, supple, full ROM Respiratory: wheezing present no respiratory distress. Good air movement. Cardiovascular: RRR, no significant murmur, no rub Gastrointestinal: non-tender, positive bowel sounds Musculoskeletal: no edema, pulses present Neurological: non-focal, normal sensation, moves all 4 limbs Psychiatric: normal affect, A&O x 3 Skin: no rash, normal turgor, cap refill <2 seconds Dx/Plan (1) HIV (human immunodeficiency virus infection) Code(s): B20 - HUMAN IMMUNODEFICIENCY VIRUS [HIV] DISEASE Status: Acute (2) PCP (pneumocystis jiroveci pneumonia) Code(s): B59 - PNEUMOCYSTOSIS Status: Suspected Qualifiers: Laterality: bilateral (3) Lymphocytopenia Code(s): D72.810 - LYMPHOCYTOPENIA Status: Acute (4) Acute respiratory failure with hypoxia Code(s): J96.01 - ACUTE RESPIRATORY FAILURE WITH HYPOXIA Status: Acute (5) Bandemia Code(s): D72.825 - BANDEMIA Status: Acute (6) Marijuana use Code(s): F12.90 - CANNABIS USE, UNSPECIFIED, UNCOMPLICATED Status: Acute (7) Sepsis Code(s): A41.9 - SEPSIS, UNSPECIFIED ORGANISM Status: Acute Qualifiers: Sepsis type: Haemophilus influenzae (8) Pneumonia Code(s): J18.9 - PNEUMONIA, UNSPECIFIED ORGANISM Status: Acute Qualifiers: Pneumonia type: due to Haemophilus influenzae Laterality: bilateral (9) AIDS Status: Chronic (10) CD4 T lymphocytopenia Code(s): D72.810 - LYMPHOCYTOPENIA Status: Acute - Plan Plan: Pneumoina, most likely H inflluenza with + blood ccx's and negative fungitell assay. A- Diagnosed with HIV on admission 05/14/19. CXR diffuse ground glass appearance. Chest CT: diffuse patchy infiltrates. urine strep penumo ag neg, urine Legionella ag negative. Influenza a/b neg. penumocystis PCR pending. Sputum smear shows fungal spores. CD4 71. 2/2 blood ccx's H influenza. Fungitell neg at <31, CMV <20, urine histo AG neg. P- started on bactrim and decadron 05/14/19. Transtion to oral bactirm, taper steroids to 20 mg prednisone. -continue rocephin H. Influenza bacteremia A- shown on BCx 06/14. Pt is covered on three antimicrobials P- continue rocephin -f/u recs per ID HIV seropositive, new diagnosis for pt. A- CD4 count 71. Viral count 4430. Dr. Tapia consulted. appreciated consult and recommendations. Will be starting anti-retroviral therapy soon. Added bactrim IV. Pending results of pneumocystis PCR pending, fungitell assay < 31 neg, histoplasma AG neg, CMV DNA PCR +, and toxoplasma AG. cryptococcal AG neg. LDH 331, CRP 26.45. Hep B NR, immune. Pt has social hx of homosexual intercourse, street tattoos as possible source of HIV. P- antriretrovirals to be started per Dr. Tapia Acute hypoxic respiratory failure 2/2 #1. A- improved to 95-97% on 2.5 L per NC. P- continue O2 per NC to keep stats above 92% Relative lymphocytopenia A- wbc 8.4. absolute lymphocyte count 1932. CD4 count 71 P- treat HIV per ID Sepsis 2/2 #1. Improved -bactrim, rocephin, azithro Code status: full code diet: regular dvt ppx: lovenox Dispo: inpatient >48 stay .
[2019-05-18] MEDS: Raltegravir Potassium 400 MG TAB PO SCH ×2 (08:56→20:22)
[2019-05-18] MEDS: Sulfameth/Trimethoprim DS 800-160mg TAB PO SCH ×2 (08:56→20:22)
[2019-05-18] MEDS: Emtricitabine/Tenofovir 200-300 MG TAB PO SCH (08:56)
[2019-05-18] MEDS: predniSONE 20 MG TAB PO SCH (08:57)
[2019-05-18] MEDS: Enoxaparin Sodium 40 MG/0.4 ML SYRINGE SC SCH (08:57)
--- NOTE | 2019-05-18 11:30 | PRG ---
DATE OF SERVICE: Mr. Lee continues to look and feel fine. He is now growing Haemophilus influenzae out of his blood cultures. His Fungitell assay was negative for Pneumocystis and we are now switching treatment to Haemophilus influenzae, although he may have both. In the event, he will be switched to oral Bactrim while discontinuing the azithromycin. For the time being, he will be left on the Rocephin for H. flu and Bactrim for Pneumocystis prophylaxis. Dr. Tapia is starting anti-retroviral therapy with Skye and Marquita. Job ID: [id number]
[2019-05-18] MEDS: cefTRIAXone\\ROCEPHIN 2 GM in Sodium Chloride 0.9% 100 ML IVPB SCH (11:58)
--- NOTE | 2019-05-18 14:26 | RAD ---
XR Chest Pa Lat STANDARD History: Pneumonia Comparison: CTA chest and chest radiograph May 14, 2019 Findings: Mild interval improvement of the extensive reticular nodular opacities of the lungs. No pne umothorax. No effusion. Hilar adenopathy is similar. Impression: Mild improved aeration of the lungs suggesting partially resolving atypical infectious pr ocess. Adenopathy is similar.
[2019-05-19 00:07] LABS: Mycoplasma pneumoniae IgG AB 204 U/mL (0-99); Mycoplasma pneumoniae IgM AB Less than 770 U/mL (0-769)
[2019-05-19] MEDS: Sodium Chloride 0.9% 1,000 ML IV SCH ×3 (01:02→09:03)
[2019-05-19 05:42] LABS: #Eosinphils 0.1 thou/uL (0.0-0.7); #Lymphocytes 0.9 thou/uL (1.20-3.40); #Monocytes 0.4 thou/uL (0.11-0.59); #Neutrophils 6.3 thou/uL (1.40-6.50); %Basophils 0.1 % (0.0-1.0); %Eosinophils 0.8 % (0.0-10.0); %Lymphocytes 11.5 % (21.0-51.0); %Monocytes 4.6 % (0.0-10.0); Hemoglobin 12.5 g/dL (14.0-18.0); Mean Corpuscular Hemoglobin 27.9 pg (27.0-31.0); Mean Corpuscular Volume 84.6 fL (78.0-98.0); Platelet Count 335 thou/uL (130-400); RBC Distribution Width 12.7 % (11.5-14.5); Red Blood Cell (RBC) Count 4.46 mill/uL (4.70-6.10); White Blood Cell (WBC) Count 7.6 thou/uL (4.8-10.8)
[2019-05-19 06:03] LABS: Anion Gap 8 mmol/L (10-20); BUN (Urea Nitrogen) 12 mg/dL (8.9-20.6); Calc. Creatinine Clearance 141 mL/min (70-130); Calcium 8.1 mg/dL (7.8-10.44); Carbon Dioxide 26 mmol/L (22-29); Chloride 101 mmol/L (98-107); Estimated GFR-MDRD Greater than 90; Glucose 73 mg/dL (70-105); Potassium 3.9 mmol/L (3.5-5.1); Sodium 131 mmol/L (136-145)
--- NOTE | 2019-05-19 06:36 | PDOC.FM ---
- Subjective Subjective: Pt states " im starting to feel like myself again." He has been off [place] O2 for almost 24hours and doing well. Cough improving. Appetite back and having normal BM's. Pt eager to go home and back to work. - Objective MAR Reviewed: Yes Vital Signs & Weight: Vital Signs (12 hours) Temp Pulse Resp BP Pulse Ox 05/19/19 04:00 98.1 F 75 18 143/87 H 94 L 05/19/19 03:52 98.3 F 77 18 129/78 98 05/18/19 23:54 98.8 F 68 18 121/71 95 05/18/19 20:00 98.3 F 94 18 115/73 95 Weight Weight 63.5 kg I&O: 05/17/19 05/18/19 05/19/19 06:59 06:59 06:59 Intake Total 3520 4520 4722 Output Total 3350 1850 2850 Balance 170 2670 1872 Result Diagrams: 05/19/19 04:51 05/19/19 04:51 Phys Exam - Physical Examination Constitutional: NAD HEENT: moist MMs, sclera anicteric Neck: no JVD, supple, full ROM Respiratory: wheezing present (LLL, improved from previous exams. ) no resp distress. Improved movement of air. Cardiovascular: RRR, no significant murmur, no rub Gastrointestinal: soft, non-tender, positive bowel sounds Musculoskeletal: no edema, pulses present Neurological: non-focal, moves all 4 limbs Psychiatric: normal affect, A&O x 3 Skin: no rash, normal turgor, cap refill <2 seconds Dx/Plan (1) HIV (human immunodeficiency virus infection) Code(s): B20 - HUMAN IMMUNODEFICIENCY VIRUS [HIV] DISEASE Status: Acute (2) PCP (pneumocystis jiroveci pneumonia) Code(s): B59 - PNEUMOCYSTOSIS Status: Ruled-out Qualifiers: Laterality: bilateral (3) Lymphocytopenia Code(s): D72.810 - LYMPHOCYTOPENIA Status: Acute (4) Acute respiratory failure with hypoxia Code(s): J96.01 - ACUTE RESPIRATORY FAILURE WITH HYPOXIA Status: Acute (5) Bandemia Code(s): D72.825 - BANDEMIA Status: Acute (6) Marijuana use Code(s): F12.90 - CANNABIS USE, UNSPECIFIED, UNCOMPLICATED Status: Acute (7) Sepsis Code(s): A41.9 - SEPSIS, UNSPECIFIED ORGANISM Status: Acute Qualifiers: Sepsis type: Haemophilus influenzae (8) Pneumonia Code(s): J18.9 - PNEUMONIA, UNSPECIFIED ORGANISM Status: Acute Qualifiers: Pneumonia type: due to Haemophilus influenzae Laterality: bilateral (9) AIDS Status: Chronic (10) CD4 T lymphocytopenia Code(s): D72.810 - LYMPHOCYTOPENIA Status: Acute - Plan Plan: Pneumoina, most likely H influenza with + blood ccx's and negative fungitell assay. A- Diagnosed with HIV on admission 05/14/19. CXR diffuse ground glass appearance. Chest CT: diffuse patchy infiltrates. urine strep pneumo ag neg, urine Legionella ag negative. Influenza a/b neg. penumocystis PCR pending. Sputum smear shows fungal spores. CD4 71. 2 blood ccx's H influenza. Fungitell neg at <31, CMV <20, urine histo AG neg. P- started on bactrim and decadron 05/14/19. Transitioned to oral bactrim, taper steroids to 20 mg prednisone. -continue rocephin, transition to oral antibiotics and start planning for D/C with ID recommendations. H. Influenza bacteremia A- shown on BCx 06/14. P- continue rocephin -f/u recs per ID HIV seropositive, new diagnosis for pt. A- CD4 count 71. Viral count 4430. Dr. Tapia consulted. appreciated consult and recommendations. Will be starting anti-retroviral therapy soon. Added bactrim IV. Pending results of pneumocystis PCR pending, fungitell assay < 31 neg, histoplasma AG neg, CMV DNA PCR +, and toxoplasma AG. cryptococcal AG neg. LDH 331, CRP 26.45. Hep B NR, immune. Pt has social hx of homosexual intercourse, street tattoos as possible source of HIV. P- antriretrovirals to be started per Dr. Tapia Acute hypoxic respiratory failure 06/14 #1. Improved. NO longer requiting NC O2 . A- improved to 95-97% on 2.5 L per NC. P- continue O2 per NC to keep stats above 92% Relative lymphocytopenia A- wbc 8.4. absolute lymphocyte count 1932. CD4 count 71 P- treat HIV per ID Sepsis 06/14 #1. Improved -bactrim, rocephin, azithro - monotherapy of rocephin 05/17. Code status: full code diet: regular dvt ppx: lovenox Dispo: inpatient >48 stay .
[2019-05-19] MEDS: Raltegravir Potassium 400 MG TAB PO SCH (09:03)
[2019-05-19] MEDS: Enoxaparin Sodium 40 MG/0.4 ML SYRINGE SC SCH (09:03)
[2019-05-19] MEDS: Sulfameth/Trimethoprim DS 800-160mg TAB PO SCH (09:03)
[2019-05-19] MEDS: predniSONE 20 MG TAB PO SCH (09:03)
[2019-05-19] MEDS: Emtricitabine/Tenofovir 200-300 MG TAB PO SCH (09:03)
--- NOTE | 2019-05-19 11:04 | PRG ---
DATE OF SERVICE: 05/19/2019 I have examined Mr. Lee and discussed his care with Dr. Angelica Chino. I agree with her assessment and plan. Mr. Lee is in excellent spirits this morning. We are continuing him on antibiotic coverage for Haemophilus influenzae pneumonia as well as prophylaxis for Pneumocystis. He is starting retroviral therapy under the tutelage of Dr. Tapia. He is nearing time for discharge and will follow up with Dr. Tapia. We are also consulting Case Management to helping with the cost related to his anti-retroviral therapy. Job ID: [id number]
[2019-05-19] MEDS: cefTRIAXone\\ROCEPHIN 2 GM in Sodium Chloride 0.9% 100 ML IVPB SCH (11:17)
[2019-05-19 11:47] VITALS: TEMP 98.7
[2019-05-19 15:40] VITALS: BP 122/76
--- NOTE | 2019-05-20 03:00 | DIS ---
DATE OF ADMISSION: 05/14/2019 DATE OF DISCHARGE: 05/19/2019 RESIDENT: Angelica Chino DO ADMITTING ATTENDING: Bjorn Gilbert MD DISCHARGE ATTENDING: Bjorn Gilbert MD CONSULTS: 1. Infectious Disease, Dr. Tapia. 2. Case Management. PROCEDURES PERFORMED: Chest thorax CTA, no pulmonary thromboembolism as visualized reticulonodular interstitial infiltrates with bronchial wall thickening leading consideration is an atypical infection. Right hilar and mediastinal lymphadenopathy is personally reactive in nature and likely neoplastic process cannot be excluded. DIAGNOSES: 1. Pneumonia, most likely from Haemophilus influenza. 2. Haemophilus influenzae bacteremia. 3. HIV seropositive. 4. Acute hypoxic respiratory failure secondary to #1. 5. Relative lymphocytopenia. 6. Sepsis secondary to #1. DISCHARGE MEDICATIONS: Biktarvy 50/200/25 take one tablet p.o. daily, Levaquin 750 p.o. daily for 7 days, Bactrim DS p.o. b.i.d. for 19 more days, then switch to Bactrim DS p.o. three times a week for prophylaxis. HISTORY OF PRESENT ILLNESS/HOSPITAL COURSE: Mr. Lee is a 28-year-old male with no known medical problems, who came into the emergency department because of difficulty breathing and cough. He was admitted for acute hypoxic respiratory failure secondary to bilateral pneumonia. He was found to have positive HIV status and was presumed to have PCP pneumonia. However, patient's Fungitell was less than 31, which is negative and his blood cultures were 2/2 positive for Haemophilus influenzae. The patient's diagnosis has been negative for PCP pneumonia and presumed to be H influenza pneumonia because of the bacteremia. The patient was treated originally with prednisone, IV Bactrim, IV azithromycin. When blood cultures resulted, he was started on IV Rocephin and taken off IV Bactrim, transitioned to p.o. Bactrim. The patient's CD4 count resulted to be at 71. This qualifies the patient to have a diagnosis of AIDS. Cryptococcal antigen negative. Urine strep antigen and Legionella antigen negative. Hep B nonreactive, LDL 331. BNP less than 200, negative. Urine histo antigen negative. Toxo negative, hepatitis B negative. The patient reported to have a history of remote homosexual intercourse activity and also having multiple street tattoos. He is unsure of the time that he contracted HIV. The patient's respiratory status improved over the course of the hospital stay with nasal cannula oxygen, as well as IV antibiotic therapy. The patient was transitioned to Rocephin and Bactrim only, as well as prednisone p.o. 20 mg daily. On the day of discharge, Dr. Tapia recommended that he be discharged on Biktarvy p.o. daily, one more week of levofloxacin, 19 more days of b.i.d. Bactrim DS, and then to switch to three times a week Bactrim DS. The patient understood and was counseled on this antibiotic regimen as we also gave him written instructions. The patient will be going to Dr. 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 He understands these instructions and also understands the location of Dr. Tapia' office to picker box operator his medicine. The patient was given a discount card to picker box operator his antibiotics at a local [facility] pharmacy. The patient is very eager to go home and return to work. DISPOSITION: Stable. DISCHARGE INSTRUCTIONS: 1. Location: Home. 2. Diet: Regular diet. 3. Activity: As tolerated. 4. Followup: Follow up with Dr. Tapia in 1 day's time to picker box operator his Biktarvy in the outpatient office, as well as primary care in 1 week. Job ID: [id number] MTDD
[2019-05-20 13:11] LABS: QuantiFERON-TB Gold Plus Indeterminate (Negative)
--- NOTE | 2019-05-21 17:46 | PQF ---
[employer] Spanish In[employer] IAN Trammell BJORN STINSON [id number] CLINICAL DOCUMENTATION CLARIFICATION FORM: POST DISCHARGE Addendum to original discharge summary date: ____ Late entry note date: __ DATE: 05/21/18 ATTN: Bjorn Stinson Please exercise your independent, professional judgment in responding to the clarification form. Clinical indicators are provided on the bottom of this form for your review Can you please further clarify the diagnosis of the patient based on the clinical indicators below? Please check appropriate box(s): [ ] AIDS /HIV Disease [ ] Asymptomatic HIV infection status [ ] Non-specific serologic evidence of HIV [ ] Other diagnosis please specify In addition, please specify: Present on Admission (POA): [ ] Yes [ ] No [ ] Unable to determine For continuity of documentation, please document condition throughout progress notes and discharge summary. Thank You. CLINICAL INDICATORS - SIGNS / SYMPTOMS / LABS DS pg.2- The patient CD4 count resulted to be at 7.1 This qualifies the patient to have a diagnosis of AIDS. DS pg.1- HIV seropositive H and P pg.1- Fever, diarrhea, muscle aches, decrease appetite Consult 05/14 pg.1- Newly identify HIV Infection Hospitalist PN .02- Diagnosed with HIV infection on admission PN pg3 05/15- Possible AIDS RISK FACTORS Sepsis- DS pg.1 Pneumonia molt likely Haemophilus influenzae- DS pg.1 Acute hypoxic respiratory failure- DS pg.1 TREATMENTS: Infectious Consult 05/14 Dr. Tapia Chest/Thorax CTA 05/14 Chest X ray 05/14 Anti-retroviral therapy- PN 05/17 IV antibiotics- JUL 11 IV fluids- JUL 11 (This form is maintained as a part of the permanent medical record) 2014 [employer] All Rights Reserved [email or web address] [not provided] [email or web address]
== END 2019-05-19 17:35 | disposition home or self-care (01) | DRG 974 ==
LOC: ERS 04:40 → SURG A 07:56
PROVIDERS: ADMIT Internal Medicine; ATTEND Emergency Medicine
DX: A41.89 Other specified sepsis (principal); J96.01 Acute respiratory failure with hypoxia; B20 Human immunodeficiency virus [HIV] disease; J12.89 Other viral pneumonia; D72.810 Lymphocytopenia; F17.210 Nicotine dependence, cigarettes, uncomplicated; Z88.1 Allergy status to other antibiotic agents; F12.10 Cannabis abuse, uncomplicated
CPT/HCPCS: 36415; 71045; 71046; 71275; 80048; 80053; 80306; 81003; 81015; 83605; 83615; 83880; 84145; 84484; 85025; 85048; 85379; 86140; 86361; 86480; 86701; 86702; 86704; 86706; 86709; 86777; 86780; 87040; 87077; 87149; 87340; 87385; 87389; 87449; 87497; 87521; 87536; 87804; 87899; 88112; 88312; 93005; 94640; 96365; 96367; 96375; J0456; J0696; J1650; J2930; J3490; J7070; J7512; J7620; Q9967